=== PATIENT | female | born 1965 | race Caucasian/White ===

== ENCOUNTER → 2017-02-28 | Outpatient (CLI) | payer BC ==
--- NOTE | 2017-03-01 09:43 | MM ---
Reason for exam: screening (asymptomatic). Last mammogram was performed 1 year ago. History: Patient is postmenopausal. Family history of breast cancer in maternal aunt at age 68 and premenopausal breast cancer in sister at age 39. Benign left mammotome panel of the left breast, March 19, 2012. Benign left breast aspiration of the left breast, March 06, 2012. Cancelled Left Mammotome of the left breast, June 02, 2008. Cancelled Left US Needle Biopsy of the left breast, January 24, 2008. Took hormonal contraceptives for 15 years beginning at age 21. Physical Findings: A clinical breast exam by your physician is recommended on an annual basis and results should be correlated with mammographic findings. MG 3D Screening Mammo W/Cad Bilateral CC and MLO view(s) were taken. XCCL view(s) were taken of the left breast. Prior study comparison: February 25, 2016, bilateral MG 3d screening mammo w/cad. December 08, 2014, bilateral MG screening mammo w CAD. November 29, 2013, bilateral MG screening mammo w CAD. The breast tissue is heterogeneously dense. This may lower the sensitivity of mammography. Finding: There are typically round benign calcifications in both breasts. Previous mammotome biopsy in the left breast x2. There is no discrete abnormality. ASSESSMENT: Benign, BI-RAD 2 RECOMMENDATION: Routine screening mammogram of both breasts in 1 year. Manage patient on a clinical basis regarding right nipple skin lesion, if within the breast consider ultrasound.
== END | disposition home or self-care (01) ==
LOC: RADMAMWWP 13:58
PROVIDERS: ATTEND Obstetrics & Gynecology
DX: Z12.31 Encounter for screening mammogram for malignant neoplasm of breast (principal); Z80.3 Family history of malignant neoplasm of breast
CPT/HCPCS: 77063; G0202

== ENCOUNTER → 2017-04-17 | Outpatient (CLI) | payer BC ==
--- NOTE | 2017-04-18 16:17 | BD ---
EXAMINATION TYPE: MG DEXA axial skeleton. DATE OF EXAM: 04/17/2017 COMPARISON: NONE CLINICAL HISTORY: 51-year-old female screening for osteoporosis Height: 5 FT 3 1/4 IN Weight: 176 FRAX RISK QUESTIONS: Alcohol (3 or more units per day): NO Family History (Parent hip fracture): NO Glucocorticoids (More than 3mos): NO (Ex: prednisone, prednisolone, methylprednisolone, dexamethasone, and hydrocortisone). History of Fracture in Adulthood: NO Secondary Osteoporosis: 1. Type 1 Diabetes: NO 2. Hyperthyroidism: NO 3. Menopause before 45: YES 4. Malnutrition: NO 5. Chronic liver disease: NO Rheumatoid Arthritis: NO Current Tobacco Use: NO RISK FACTORS HISTORY OF: Family History of Osteoporosis: MOTHER Active: YES Postmenopausal woman: PART HYST AGE 39 MEDICATIONS: Additional Medications: LOSARTIN,LIPITOR ,XANAX NEEDED, TIKA Additional History: EXAM MEASUREMENTS: Bone mineral densitometry was performed using the [employer] System. Bone mineral density as measured about the Lumbar spine is: ----- L1-L4(G/cm2): 1.043 T Score Values are as follows: ----- L2: -1.4 ----- L3: -0.7 ----- L4: -0.8 ----- L1-L4: -1.1 BASELINE Bone mineral density about the R hip (g/cm2): 0.829 Bone mineral density about the L hip (g/cm2): 0.845 T Score values are as follows: -----R Neck: -1.5 -----L Neck: -1.4 -----R Total: -0.4 -----L Total: -0.3 BASELINE IMPRESSION: Osteopenia (T Score between -2.5 and -1 as noted by T score values in the lumbar spine and both hips) . There is slightly increased risk of fracture and the patient may be considered for treatment. Re-Screen 2-5 years. NOTE: T-SCORE=SD OF THE YOUNG ADULT MEAN.
== END | disposition home or self-care (01) ==
LOC: RADBDWWP 13:55
PROVIDERS: ATTEND Obstetrics & Gynecology
DX: Z13.820 Encounter for screening for osteoporosis (principal); M85.80 Other specified disorders of bone density and structure, unspecified site
CPT/HCPCS: 77080

== ENCOUNTER → 2018-03-27 | Outpatient (CLI) | payer BC ==
--- NOTE | 2018-03-27 11:13 | MM ---
Reason for exam: screening (asymptomatic). Last mammogram was performed 1 year and 1 month ago. History: Patient is postmenopausal. Family history of breast cancer in maternal aunt at age 68 and premenopausal breast cancer in sister at age 39. Benign left mammotome panel of the left breast, March 19, 2012. Benign left breast aspiration of the left breast, March 06, 2012. Cancelled Left Mammotome of the left breast, June 02, 2008. Cancelled Left US Needle Biopsy of the left breast, January 24, 2008. Took hormonal contraceptives for 15 years beginning at age 21. Physical Findings: A clinical breast exam by your physician is recommended on an annual basis and results should be correlated with mammographic findings. MG 3D Screening Mammo W/Cad Bilateral CC and MLO view(s) were taken. Prior study comparison: February 28, 2017, bilateral MG 3d screening mammo w/cad. February 25, 2016, bilateral MG 3d screening mammo w/cad. The breast tissue is heterogeneously dense. This may lower the sensitivity of mammography. No significant changes when compared with prior studies. ASSESSMENT: Benign, BI-RAD 2 RECOMMENDATION: Routine screening mammogram of both breasts in 1 year.
== END ==
LOC: RADMAMWWP 06:48
PROVIDERS: ATTEND Obstetrics & Gynecology
DX: Z12.31 Encounter for screening mammogram for malignant neoplasm of breast (principal); Z80.3 Family history of malignant neoplasm of breast
CPT/HCPCS: 77063; 77067

== ENCOUNTER → 2019-05-27 | Outpatient (CLI) | payer BC ==
--- NOTE | 2019-05-27 12:13 | BD ---
EXAMINATION TYPE: Axial Bone Density DATE OF EXAM: 05/27/2019 COMPARISON: 04/17/2017 CLINICAL HISTORY: Z 78.0 Height: 64.5 Weight: 193.7 FRAX RISK QUESTIONS: Alcohol (3 or more units per day): no Family History (Parent hip fracture): no Glucocorticoids (More than 3mos): no (Ex: prednisone, prednisolone, methylprednisolone, dexamethasone, and hydrocortisone). History of Fracture in Adulthood: no Secondary Osteoporosis: 1. Type 1 Diabetes: no 2. Hyperthyroidism: no 3. Menopause before 45: yes 4. Malnutrition: no 5. Chronic liver disease: no Rheumatoid Arthritis: no Current Tobacco Use: no RISK FACTORS HISTORY OF: Family History of Osteoporosis: yes Active: yes Diet low in dairy products/other sources of calcium: no Postmenopausal woman: hysterectomy age 39 Lost more than 2 inches in height since high school: no MEDICATIONS: Lipitor, losartan, water pill Additional History: EXAM MEASUREMENTS: Bone mineral densitometry was performed using the [employer] System. Bone mineral density as measured about the Lumbar spine is: ----- L1-L4(G/cm2): 1.017 T Score Values are as follows: ----- L2: -1.3 ----- L3: -1.1 ----- L4: -1.2 ----- L1-L4: -1.4 Bone mineral density has: decreased -2.9 % since study of: 04.17.2017 Bone mineral density about the R hip (g/cm2): 0.814 Bone mineral density about the L hip (g/cm2): 0.836 T Score values are as follows: -----R Neck: -1.6 -----L Neck: -1.5 -----R Total: -0.4 -----L Total: -0.3 Bone mineral density has: decreased -0.2 % since study of: 04.17.2017 IMPRESSION: Osteopenia (T Score between -2.5 and -1). There is slightly increased risk of fracture and the patient may be considered for treatment. Re-Screen 2-5 years. NOTE: T-SCORE=SD OF THE YOUNG ADULT MEAN.
--- NOTE | 2019-05-27 13:19 | MM ---
Reason for exam: screening (asymptomatic). Last mammogram was performed 1 year and 2 months ago. History: Patient is postmenopausal. Family history of breast cancer in maternal aunt at age 68 and premenopausal breast cancer in sister at age 39. Benign left mammotome panel of the left breast, March 19, 2012. Benign left breast aspiration of the left breast, March 06, 2012. Cancelled Left Mammotome of the left breast, June 02, 2008. Cancelled Left US Needle Biopsy of the left breast, January 24, 2008. Took hormonal contraceptives for 15 years beginning at age 21. Physical Findings: A clinical breast exam by your physician is recommended on an annual basis and results should be correlated with mammographic findings. MG 3D Screening Mammo W/Cad Bilateral CC and MLO view(s) were taken. Prior study comparison: March 27, 2018, bilateral MG 3d screening mammo w/cad. February 28, 2017, bilateral MG 3d screening mammo w/cad. The breast tissue is heterogeneously dense. This may lower the sensitivity of mammography. Benign appearing bilateral calcifications. No suspicious abnormality. Left biopsy marker present. No significant changes when compared with prior studies. ASSESSMENT: Benign, BI-RAD 2 RECOMMENDATION: Routine screening mammogram of both breasts in 1 year.
== END | disposition home or self-care (01) ==
LOC: RADBDWWP 10:12
PROVIDERS: ATTEND Obstetrics & Gynecology
DX: Z12.31 Encounter for screening mammogram for malignant neoplasm of breast (principal); Z13.820 Encounter for screening for osteoporosis; M85.88 Other specified disorders of bone density and structure, other site; Z78.0 Asymptomatic menopausal state
CPT/HCPCS: 77063; 77067; 77080

== ENCOUNTER → 2020-07-21 | Outpatient (CLI) | payer BC ==
--- NOTE | 2020-07-22 11:07 | MM ---
Reason for exam: screening (asymptomatic). Last mammogram was performed 1 year and 2 months ago. History: Patient is postmenopausal. Family history of breast cancer in maternal aunt at age 68 and premenopausal breast cancer in sister at age 39. Benign left mammotome panel of the left breast, March 19, 2012. Benign left breast aspiration of the left breast, March 06, 2012. Cancelled Left Mammotome of the left breast, June 02, 2008. Cancelled Left US Needle Biopsy of the left breast, January 24, 2008. Took hormonal contraceptives for 15 years beginning at age 21. Physical Findings: A clinical breast exam by your physician is recommended on an annual basis and results should be correlated with mammographic findings. MG 3D Screening Mammo W/Cad Bilateral CC and MLO view(s) were taken. Prior study comparison: May 27, 2019, bilateral MG 3d screening mammo w/cad. March 27, 2018, bilateral MG 3d screening mammo w/cad. The breast tissue is heterogeneously dense. This may lower the sensitivity of mammography. No significant changes when compared with prior studies. ASSESSMENT: Benign, BI-RAD 2 RECOMMENDATION: Routine screening mammogram of both breasts in 1 year.
== END | disposition home or self-care (01) ==
LOC: RADMAMWWP 09:11
PROVIDERS: ATTEND Obstetrics & Gynecology
DX: Z12.31 Encounter for screening mammogram for malignant neoplasm of breast (principal); Z80.3 Family history of malignant neoplasm of breast
CPT/HCPCS: 77063; 77067

== ENCOUNTER → 2021-07-27 | Outpatient (CLI) | payer BC ==
--- NOTE | 2021-07-27 10:24 | MM ---
Reason for exam: screening (asymptomatic). Last mammogram was performed 1 year ago. History: Patient is postmenopausal. Family history of breast cancer in maternal aunt at age 68 and premenopausal breast cancer in sister at age 39. Benign left mammotome panel of the left breast, March 19, 2012. Benign left breast aspiration of the left breast, March 06, 2012. Cancelled Left Mammotome of the left breast, June 02, 2008. Cancelled Left US Needle Biopsy of the left breast, January 24, 2008. Took hormonal contraceptives for 15 years beginning at age 21. Physical Findings: A clinical breast exam by your physician is recommended on an annual basis and results should be correlated with mammographic findings. MG 3D Screening Mammo W/Cad Bilateral CC and MLO view(s) were taken. Prior study comparison: July 21, 2020, bilateral MG 3d screening mammo w/cad. May 27, 2019, bilateral MG 3d screening mammo w/cad. The breast tissue is heterogeneously dense. This may lower the sensitivity of mammography. Finding #1: There is a 6-7 mm circumscribed oval mass located 3 cm from the nipple in the anterior, subareolar position of the left breast. Finding #2: There are typically benign round calcifications in both breasts. Previous mammotome biopsy in the left breast x 2. New finding since July 21, 2020. ASSESSMENT: Incomplete: need additional imaging evaluation, BI-RAD 0 RECOMMENDATION: Ultrasound of the left breast. [facility] will attempt to contact patient to return for ultrasound.
== END ==
LOC: RADMAMWWP 06:57
PROVIDERS: ATTEND Obstetrics & Gynecology
DX: Z12.31 Encounter for screening mammogram for malignant neoplasm of breast (principal)
CPT/HCPCS: 77063; 77067

== ENCOUNTER → 2021-08-06 | Outpatient (CLI) | payer BC ==
--- NOTE | 2021-08-09 08:30 | USB ---
Reason for exam: additional evaluation requested from abnormal screening. History: Patient is postmenopausal. Family history of breast cancer in maternal aunt at age 68 and premenopausal breast cancer in sister at age 39. Benign left mammotome panel of the left breast, March 19, 2012. Benign left breast aspiration of the left breast, March 06, 2012. Cancelled Left Mammotome of the left breast, June 02, 2008. Cancelled Left US Needle Biopsy of the left breast, January 24, 2008. Took hormonal contraceptives for 15 years beginning at age 21. Physical Findings: Nurse did not find any significant physical abnormalities on exam. US Breast Workup Limited LT Technologist: Brooke uQan Left limited breast ultrasound including focal area of concern, retroareolar and axilla demonstrates a 0.3 x 0.5 x 0.3cm cystic lesion in the subareolar region. Scaned 1-3 o'clock. These results were verbally communicated with the patient and result sheet given to the patient on 08/06/21. ASSESSMENT: Benign, BI-RAD 2 RECOMMENDATION: Return to routine screening mammogram schedule for both breasts.
== END | disposition home or self-care (01) ==
LOC: RADUSWWP 14:43
PROVIDERS: ATTEND Obstetrics & Gynecology
DX: R92.8 Other abnormal and inconclusive findings on diagnostic imaging of breast (principal)

== ENCOUNTER → 2022-04-05 | Outpatient (CLI) | payer BC ==
--- NOTE | 2022-04-06 16:08 | BD ---
EXAMINATION TYPE: Axial Bone Density DATE OF EXAM: 04/05/2022 COMPARISON: 05/27/2019 CLINICAL HISTORY: 56 years year old Female. ICD-10 CODE: M85.88 OTH DISRD OF BONE DENSITY AND STRUCT URE, OT Height: 62.7 IN Weight: 191 LBS FRAX RISK QUESTIONS: Secondary Osteoporosis: 3. Menopause before 45: PARTIAL HYST AGE 39 RISK FACTORS HISTORY OF: Family History of Osteoporosis: YES MOTHER Active: YES Postmenopausal woman: PARTIAL HYST AGE 39 MEDICATIONS: Additional Medications: CALCIUM, VIT D, OMEGA 3, CRESTOR, LOSARTAN, HCTZ,MULTI VIT EXAM MEASUREMENTS: Bone mineral densitometry was performed using the [employer] System. Bone mineral density as measured about the Lumbar spine is: ----- L1-L4(G/cm2): 1.072 T Score Values are as follows: ----- L1: -1.4 ----- L2: -1.3 ----- L3: -0.8 ----- L4: -0.6 ----- L1-L4: -0.9 Bone mineral density has: Increased 4.2% since study of: 05/27/2019 Bone mineral density about the R hip (g/cm2): 0.826 Bone mineral density about the L hip (g/cm2): 0.853 T Score values are as follows: -----R Neck: -1.5 -----L Neck: -1.3 -----R Total: -0.3 -----L Total: -0.2 Bone mineral density has: Increased 1.1% since study of: 05/27/2019 FRAX%s: The graph provided illustrates a 6.4 chance for a major osteoporotic fx and a 0.5 chance for the hips probability for fx in 10 years time. IMPRESSION: Osteopenia (T Score between -2.5 and -1). There is slightly increased risk of fracture and the patient may be considered for treatment. Re-Screen 2-5 years. NOTE: T-SCORE=SD OF THE YOUNG ADULT MEAN.
== END | disposition home or self-care (01) ==
LOC: RADBDWWP 15:45
PROVIDERS: ATTEND Obstetrics & Gynecology
DX: M85.88 Other specified disorders of bone density and structure, other site (principal)
CPT/HCPCS: 77080

== ENCOUNTER → 2023-10-26 | Outpatient (CLI) | payer BC ==
--- NOTE | 2023-10-29 20:30 | MM ---
Reason for Exam: Screening (asymptomatic). Last screening mammogram was performed 12 month(s) ago. Patient History: Menarche at age 13. First Full-Term at age 20. Hysterectomy at age 39. Postmenopausal. Hormonal Contraceptives for 15 years from age 21 until age 36. 03/19/2012, Benign Core Biopsy on the left side. 03/06/2012, Benign Cyst Aspiration on the left side. 06/02/2008, Cancelled Left Mammotome on the left side. 01/24/2008, Cancelled Left US Needle Biopsy on the left side. Maternal aunt had breast cancer, age 68. Paternal aunt had breast cancer, age 75. Sister had breast cancer, age 39. Risk Values: Dione 5 year model risk: 2.8%. NCI Lifetime model risk: 16.5%. Prior Study Comparison: 07/21/2020 Bilateral Screening Mammogram, [facility]. 07/27/2021 Bilateral Screening Mammogram, [facility]. 10/11/2022 Bilateral MG 3D screening mammo w/cad, [facility]. Tissue Density: The breasts are heterogeneously dense, which may obscure small masses. Findings: Analyzed By CAD. 2 microclips left breast from prior biopsies. There is no suspicious group of microcalcifications or new suspicious mass in either breast. Overall Assessment: Benign, BI-RAD 2 Management: Screening Mammogram of both breasts in 1 year. . Patient should continue monthly self-breast exams. A clinical breast exam by your physician is recommended on an annual basis. This exam should not preclude additional follow-up of suspicious palpable abnormalities. Note on Dione scores and lifetime risk: 1. A Dione score greater than 3% is considered moderate risk. If this is the case, consider specialist referral to assess eligibility for a risk reducing agent. 2. If overall lifetime risk for the development of breast cancer is 20% or higher, the patient may qualify for future screening with alternating mammogram and breast MRI. Electronically signed and approved by: Jere Cao M.D. Radiologist
== END | disposition home or self-care (01) ==
LOC: RADMAMWWP 15:33
PROVIDERS: ATTEND Internal Medicine
DX: Z12.31 Encounter for screening mammogram for malignant neoplasm of breast (principal); Z78.0 Asymptomatic menopausal state; Z80.3 Family history of malignant neoplasm of breast
CPT/HCPCS: 77063; 77067

== ENCOUNTER → 2024-11-27 | Outpatient (CLI) | payer BC ==
[2024-11-27 08:36] VITALS: BP 124/80; PULSE 55; RESP 16; TEMP 98.3
--- NOTE | 2024-11-27 09:42 | P.HPOB ---
History of Present Illness H&P Date: 11/27/24 Chief Complaint: The patient is here for her routine gynecologic exam and ma mmogram. This is a 59-year-old -0-3-3 with an LMP of 2004. The patient is here to establish with this office. It has been about 1 to 2 years since she last had a pelvic exam. She previously saw Dr. Gonzales for her ongoing gynecologic care. She is without gynecologic complaints. Review of Systems The patient's weight has been stable over the last year. She denies respiratory, cardiac, or G.I. problems. Past Medical History Past Medical History: Hyperlipidemia, Hypertension Additional Past Medical History / Comment(s): migraines, irregular heat beat, hypoglycemia. Osteopenia. Left knee problems. Past [employer] history: Genital warts. History of Any Multi-Drug Resistant Organisms: None Reported Past Surgical History: Hysterectomy Additional Past Surgical History / Comment(s): L. breast biopsy. Vaginal hysterectomy with posterior repair 2004. Cystocele and rectocele repairs in 2013. Colonoscopy 2017(next after 10yr). Past Anesthesia/Blood Transfusion Reactions: Family History of Problems w/ Anesthesia, Motion Sickness Additional Past Anesthesia/Blood Transfusion Reaction / Comment(s): brother "had hard time coming out" Past Psychological History: No Psychological Hx Reported Smoking Status: Former smoker Past Alcohol Use History: Rare (10 drinks per year.) Additional Past Alcohol Use History / Comment(s): Quit smoking at age 21. Past Drug Use History: None Reported Additional History: She has been since 1990. She is a childhood development teacher. - Past Family History Sister(s) Family Medical History: Cancer Additional Family Medical History / Comment(s): 1 sister had a uterine sarcoma and is . Another sister had breast cancer and is . A third sister had melanoma. Father Family Medical History: Coronary Artery Disease (CAD), Deep Vein Thrombosis (DVT), Hypertension, Myocardial Infarction ([place]) Additional Family Medical History / Comment(s): . Paternal aunt had breast cancer. Mother Family Medical History: Hyperlipidemia, Hypertension Additional Family Medical History / Comment(s): Osteoporosis. Maternal aunt had breast cancer Medications and Allergies Home Medications Medication Instructions Recorded Confirmed Type Losartan [Cozaar] 25 mg PO HS 05/21/14 11/27/24 History Ibuprofen [Motrin] 600 mg PO Q6HR PRN #60 tab 05/27/14 11/27/24 Rx Rosuvastatin [Crestor] 20 mg PO DAILY 11/27/24 11/27/24 History Ubidecarenone [Co Q-10] 100 mg PO DAILY 11/27/24 11/27/24 History hydroCHLOROthiazide 12.5 mg PO DAILY 11/27/24 11/27/24 History Allergies Allergy/AdvReac Type Severity Reaction Status Date / Time iodine Allergy Severe Anaphylaxis Verified 11/27/24 08:31 amoxicillin Allergy Wheezing,ra Verified 11/27/24 08:31 sh azithromycin Allergy Wheezing,ra Verified 11/27/24 08:31 [From Zithromax Z-Morgan] sh cephalexin monohydrate Allergy Wheezing,ra Verified 11/27/24 08:31 [From Keflex] sh erythromycin base Allergy Wheezing,ra Verified 11/27/24 08:31 sh latex Allergy hou skin Verified 11/27/24 08:31 Penicillins Allergy Wheezing,ra Verified 11/27/24 08:31 sh dust Allergy Unknown Uncoded 11/27/24 08:31 peanut butter, Allergy Unknown Uncoded 11/27/24 08:31 nuts,strawberries Exam Vital Signs Temp Pulse Resp BP Pulse Ox 11/27/24 08:33 98.3 F 55 L 16 124/80 98 Intake and Output 11/26/24 11/27/24 11/27/24 22:59 06:59 14:59 Other: Weight 83.915 kg Height 5 feet 4 inches, weight 185 pounds, BMI 31.8 This is a well-developed well-nourished white female who is alert and oriented times 3 in no acute distress. HEENT: Within normal limits. NECK: Supple without mass or thyromegaly. CHEST AND LUNGS: Clear to auscultation. HEART: Regular rate and rhythm. BREASTS: Are without mass or discharge. AXILLARY EXAM: Negative for adenopathy. BACK: Negative for CVA tenderness. ABDOMEN: Soft, nontender, without palpable masses. PELVIC EXAM: External genitalia appears normal with mild atrophy. Vagina appears normal with mild atrophy. There is a grade 1 rectocele with no other evidence of prolapse. The vaginal cuff is well supported. Bimanual examination is negative for mass or tenderness. RECTAL EXAM: Rectovaginal exam is negative for mass or tenderness and is negative for occult blood. EXTREMITIES: Nontender. IMPRESSION: 1. 59-year-old menopausal female status post vaginal hysterectomy with anterior and posterior repairs for benign reasons, with a minimal rectocele and otherwise normal gynecologic exam. 2. History of osteopenia. 3. Strong history of various cancers including breast cancer in a sister and 2 aunts, uterine sarcoma cancer in a sister, and melanoma and a another sister. PLAN: 1. Pap smears have been discontinued. 2. Self breast awareness was discussed with the patient. We have also discussed symptoms associated with inflammatory breast cancer. 3. Screening mammogram was done today. 4. Osteoporosis prevention was discussed. I have stressed the importance of adequate calcium, vitamin D and regular exercise. Recommended amounts of calcium and vitamin D were also discussed. Her last bone density test was on 04/05/2022. Have recommended repeating this and the order slip was given to the patient for this. 5. We have discussed her strong family history of different cancers including breast cancer, uterine cancer and melanoma. We have discussed cancer genetic testing. She is aware of this type of testing and had 2 nieces who tested negative for the BRCA genes. She is declining cancer genetic counseling and testing at this time. She will call if she changes her mind. We have discussed pros and cons of this type of testing. 6. She was advised to return in one year for her annual well woman exam.
== END ==
LOC: WWCWWP 07:47
PROVIDERS: ATTEND Obstetrics & Gynecology
DX: Z01.419 Encounter for gynecological examination (general) (routine) without abnormal findings (principal); Z12.31 Encounter for screening mammogram for malignant neoplasm of breast; M85.80 Other specified disorders of bone density and structure, unspecified site; Z90.710 Acquired absence of both cervix and uterus; Z87.891 Personal history of nicotine dependence; Z85.3 Personal history of malignant neoplasm of breast; Z88.0 Allergy status to penicillin; Z88.1 Allergy status to other antibiotic agents; Z88.8 Allergy status to other drugs, medicaments and biological substances; Z91.040 Latex allergy status; Z91.041 Radiographic dye allergy status

== ENCOUNTER → 2024-11-27 | Outpatient (CLI) | payer BC ==
--- NOTE | 2024-11-27 09:01 | MM ---
Reason for Exam: Screening (asymptomatic). Last mammogram was performed 1 year(s) and 1 month(s) ago. Patient History: Menarche at age 13. First Full-Term at age 20. Hysterectomy at age 39. Postmenopausal. Hormonal Contraceptives for 15 years from age 21 until age 36. 03/19/2012, Benign Core Biopsy on the left side. 03/06/2012, Benign Cyst Aspiration on the left side. 06/02/2008, Cancelled Left Mammotome on the left side. 01/24/2008, Cancelled Left US Needle Biopsy on the left side. Maternal aunt had breast cancer, age 68. Paternal aunt had breast cancer, age 75. Sister had breast cancer, age 39. Risk Values: Dione 5 year model risk: 2.9%. NCI Lifetime model risk: 16.1%. Prior Study Comparison: 07/27/2021 Bilateral Screening Mammogram, [facility]. 10/11/2022 Bilateral MG 3D screening mammo w/cad, [facility]. 10/26/2023 Bilateral MG 3D screening mammo w/cad, [facility]. Tissue Density: The breasts are heterogeneously dense, which may obscure small masses. Findings: Analyzed By CAD. 2 microclips left breast from prior biopsies. There is no suspicious group of microcalcifications or new suspicious mass in either breast. Overall Assessment: Benign, BI-RAD 2 Management: Screening Mammogram of both breasts in 1 year. Patient should continue monthly self-breast exams. A clinical breast exam by your physician is recommended on an annual basis. This exam should not preclude additional follow-up of suspicious palpable abnormalities. Note on Dione scores and lifetime risk: 1. A Dione score greater than 3% is considered moderate risk. If this is the case, consider specialist referral to assess eligibility for a risk reducing agent. 2. If overall lifetime risk for the development of breast cancer is 20% or higher, the patient may qualify for future screening with alternating mammogram and breast MRI. [facility], , 11/27/2024 8:58 AM. Electronically signed and approved by: Jere Cao M.D. Radiologist
== END | disposition home or self-care (01) ==
LOC: RADMAMWWP 07:44
PROVIDERS: ATTEND Internal Medicine
DX: Z12.31 Encounter for screening mammogram for malignant neoplasm of breast (principal); R92.333 Mammographic heterogeneous density, bilateral breasts; Z78.0 Asymptomatic menopausal state; Z80.3 Family history of malignant neoplasm of breast; Z92.0 Personal history of contraception
CPT/HCPCS: 77063; 77067